=== PATIENT | male | born 1955 | race Caucasian/White ===

== ENCOUNTER 2018-10-25 18:15 | Inpatient (IN) | payer BC ==
[~2018-10-25] VITALS: Ht 180.3 cm; Wt 131.5 kg
[2018-10-25 18:25] VITALS: Ht 180.3 cm; Wt 131.5 kg
[2018-10-25] MEDS ORDERED: GLUCOVANCE1 TA2 PO (18:38)
[2018-10-25] MEDS ORDERED: ENALAPRIL MALEA20 MG PO (18:38)
[2018-10-25] MEDS ORDERED: SOTALOL HCL80 MG PO (18:38)
[2018-10-25] MEDS ORDERED: SIMVASTATIN20 M1 PO (18:38)
[2018-10-25] MEDS ORDERED: GABAPENTIN400 M1 PO (18:39)
[2018-10-25 19:01] LABS: PLATELET COUNT 199 x10^3mcL (130-400); RED CELL DISTRIBUTION WIDTH 12.7 % (11.5-14.5)
[2018-10-25 19:02] LABS: BASOPHIL % 0 % (0-2)
[2018-10-25 19:09] LABS: CALCIUM 8.7 mg/dL (8.5-10.1); CARBON DIOXIDE 27.8 mmol/L (21-32); CREATININE SERUM 1.6 mg/dL (0.7-1.3); POTASSIUM SERUM 4.6 mmol/L (3.5-5.1)
[2018-10-25 19:13] LABS: BILIRUBIN TOTAL 0.43 mg/dL (0.20-1.00); MAGNESIUM 1.7 mg/dL (1.8-2.4); TOTAL PROTEIN, SERUM 7.4 g/dL (6.4-8.2)
[2018-10-25 19:17] LABS: ALBUMIN 3.3 g/dL (3.4-5.0)
[2018-10-25 20:13] LABS: UA SPECIFIC GRAVITY 1.025 (1.005-1.035); microscopic required? YES; urine erythrocyte TRACE (NEGATIVE)
[2018-10-25] MEDS ORDERED: COUMADIN1 MG (20:35)
[2018-10-25 23:46] LABS: PHOSPHOROUS 2.9 mg/dL (2.5-4.9)
[2018-10-25 23:47] LABS: CHOLESTEROL/HDL RATIO 2.1
[2018-10-26] VITALS (7 sets, daily range): BP systolic 83–117; BP diastolic 31–64
[2018-10-26 03:59] LABS: AMPHETAMINE QUAL UR NONE DETECTED (See below)
[2018-10-26 08:05] LABS: CALCIUM 8.4 mg/dL (8.5-10.1); CARBON DIOXIDE 22.9 mmol/L (21-32); CHLORIDE SERUM 103 mmol/L (98-107); CREATININE SERUM 1.2 mg/dL (0.7-1.3); GFR1 > 60 mL/min; GLUCOSE SERUM 111 mg/dL (74-106); POTASSIUM SERUM 4.8 mmol/L (3.5-5.1); SODIUM SERUM 136 mmol/L (136-145)
[2018-10-26 08:13] LABS: BASOPHIL % 0.2 % (0-2); PLATELET COUNT 169 x10^3mcL (130-400); RED CELL DISTRIBUTION WIDTH 12.9 % (11.5-14.5)
[2018-10-26] MEDS ORDERED: SOTALOL HCL AF PO (16:47)
[2018-10-26] MEDS ORDERED: METFORMIN HCL850 MG PO (16:48)
[2018-10-26] MEDS ORDERED: DILTIAZEM HCL60 M1 PO (16:49)
[2018-10-26] MEDS ORDERED: COUMADIN5 MG PO (16:49)
[2018-10-27 06:14] VITALS: BP 110/48
[2018-10-27 07:02] LABS: CALCIUM 8.4 mg/dL (8.5-10.1); CARBON DIOXIDE 26.4 mmol/L (21-32); CHLORIDE SERUM 102 mmol/L (98-107); CREATININE SERUM 0.9 mg/dL (0.7-1.3); GFR1 > 60 mL/min; GLUCOSE SERUM 210 mg/dL (74-106); POTASSIUM SERUM 4.9 mmol/L (3.5-5.1); SODIUM SERUM 136 mmol/L (136-145)
[2018-10-27 07:12] LABS: BASOPHIL % 0.2 % (0-2); PLATELET COUNT 176 x10^3mcL (130-400); RED CELL DISTRIBUTION WIDTH 12.5 % (11.5-14.5)
[2018-10-27 09:27] VITALS: BP 111/54
[2018-10-27 13:22] VITALS: BP 98/54
[2018-10-27 16:57] VITALS: BP 125/59
[2018-10-27 20:48] VITALS: BP 113/68
[2018-10-28 05:51] VITALS: BP 120/63
[2018-10-28 06:18] LABS: CALCIUM 8.9 mg/dL (8.5-10.1); CARBON DIOXIDE 26.7 mmol/L (21-32); CHLORIDE SERUM 106 mmol/L (98-107); CREATININE SERUM 0.8 mg/dL (0.7-1.3); GFR1 > 60 mL/min; GLUCOSE SERUM 156 mg/dL (74-106); POTASSIUM SERUM 5.1 mmol/L (3.5-5.1); SODIUM SERUM 140 mmol/L (136-145)
[2018-10-28 07:13] LABS: BASOPHIL % 0.3 % (0-2); PLATELET COUNT 175 x10^3mcL (130-400); RED CELL DISTRIBUTION WIDTH 12.6 % (11.5-14.5)
[2018-10-28 08:26] VITALS: BP 128/65
[2018-10-28 10:40] VITALS: BP 128/65
== END 2018-10-28 12:02 | disposition home or self-care (01) | DRG 871 ==
LOC: ED 18:15 → DU 22:47
PROVIDERS: Emergency Medicine; ADMIT General Practice
DX: A41.89 Other specified sepsis (principal); N17.0 Acute kidney failure with tubular necrosis; E44.1 Mild protein-calorie malnutrition; Z68.41 Body mass index [BMI] 40.0-44.9, adult; I10 Essential (primary) hypertension; J11.1 Influenza due to unidentified influenza virus with other respiratory manifestations; I48.91 Unspecified atrial fibrillation; E11.9 Type 2 diabetes mellitus without complications; E78.5 Hyperlipidemia, unspecified; E11.65 Type 2 diabetes mellitus with hyperglycemia; E86.0 Dehydration; E83.42 Hypomagnesemia; Z88.0 Allergy status to penicillin
CPT/HCPCS: 82962; 83880; 87804; J7030; J7620; Q0092

== ENCOUNTER 2020-02-24 00:54 | Emergency (ER) | payer BC ==
[~2020-02-24] VITALS: Ht 180.3 cm; Wt 117.9 kg
[~2020-02-24 00:54] MED LIST: COUMADIN1 MG; COUMADIN5 MG PO; DILTIAZEM HCL60 M1 PO; ENALAPRIL MALEA20 MG PO; GABAPENTIN400 M1 PO; GLUCOVANCE1 TA2 PO; METFORMIN HCL850 MG PO; SIMVASTATIN20 M1 PO; SOTALOL HCL AF PO; SOTALOL HCL80 MG PO
[2020-02-24 01:12] VITALS: BP 164/72; Ht 180.3 cm; Wt 117.9 kg
== END 2020-02-24 02:11 | disposition left against medical advice (07) ==
LOC: ED 00:54
DX: Z53.21 Procedure and treatment not carried out due to patient leaving prior to being seen by health care provider (principal)